=== PATIENT | male | born 1990 | race Caucasian/White ===

== ENCOUNTER 2020-12-04 20:22 | Emergency (ER) | payer MEDICAID ==
[~2020-12-04] VITALS: Ht 182.9 cm; Wt 72.7 kg
[~2020-12-04 20:22] MED LIST: LORA0.5T PO; MAGN-64 PO; OMEP-84 PO
[2020-12-04 20:59] LABS: BASOPHILS # (AUTO) 0.1 X10'3 (0-0.2); BASOPHILS % (AUTO) 0.8 % (0-1); EOSINOPHILS # (AUTO) 0.1 X10'3 (0-0.9); EOSINOPHILS % (AUTO) 1.7 % (0-6); HEMATOCRIT 41.7 % (42.0-52.0); HEMOGLOBIN 13.9 g/dl (14.0-17.9); LYMPHOCYTES # (AUTO) 2.1 X10'3 (1.1-4.8); LYMPHOCYTES % (AUTO) 27.2 % (21-51); MEAN CORPUSCULAR HEMOGLOBIN 28.8 PG (27.0-31.0); MEAN CORPUSCULAR HGB CONC 33.3 g/dL (33.0-36.5); MEAN CORPUSCULAR VOLUME 86.7 FL (78-98); MEAN PLATELET VOLUME 8.4 FL (7.4-10.4); MONOCYTES # (AUTO) 0.7 X10'3 (0-0.9); MONOCYTES % (AUTO) 8.4 % (2-12); NEUTROPHILS # (AUTO) 4.8 X10'3 (1.8-7.7); NEUTROPHILS % (AUTO) 61.9 % (42-75); PLATELET COUNT 215 X10'3 (140-440); RED BLOOD COUNT 4.81 X10'6 (4.70-6.10); RED CELL DISTRIBUTION WIDTH 13.4 % (11.5-14.5); WHITE BLOOD COUNT 7.8 X10'3 (4.5-11.0)
[2020-12-04 21:07] LABS: ALANINE AMINOTRANSFERASE 27 U/L (12-78); ALBUMIN 3.8 G/DL (3.4-5.0); ALBUMIN/GLOBULIN RATIO 1.3 (1.1-1.5); ALKALINE PHOSPHATASE 76 IU/L (46-116); ANION GAP 8 (8-16); ASPARTATE AMINO TRANSFERASE 19 U/L (10-37); BILIRUBIN,TOTAL 0.2 MG/DL (0.1-1.0); BLOOD UREA NITROGEN 9 MG/DL (7-18); BUN/CREATININE RATIO 11.3 (5.4-32.0); CALCIUM 8.4 MG/DL (8.5-10.1); CHLORIDE 101 MMOL/L (99-107); GLUCOSE 106 MG/DL (70-104); SODIUM 135 MMOL/L (135-145); TOTAL CARBON DIOXIDE 25.9 MMOL/L (24-32); TOTAL PROTEIN 6.7 G/DL (6.4-8.2); eGFR > 90 ML/MIN
[2020-12-04 21:36] VITALS: BP 123/73
== END 2020-12-04 21:54 | disposition home or self-care (01) ==
LOC: ER 20:23
DX: R55 Syncope and collapse (principal); R11.2 Nausea with vomiting, unspecified; R19.7 Diarrhea, unspecified; R42 Dizziness and giddiness; K21.9 Gastro-esophageal reflux disease without esophagitis; G89.29 Other chronic pain; F41.9 Anxiety disorder, unspecified; F32.9 Major depressive disorder, single episode, unspecified; F20.9 Schizophrenia, unspecified; F12.90 Cannabis use, unspecified, uncomplicated; Z79.899 Other long term (current) drug therapy
CPT/HCPCS: 36415; 80053; 85025; 93005; 99284

== ENCOUNTER 2021-03-07 11:35 | Emergency (ER) | payer MEDICAID ==
[~2021-03-07] VITALS: Ht 182.9 cm; Wt 65.6 kg
[2021-03-07 11:47] VITALS: BP 118/62
[2021-03-07] MEDS ORDERED: diphenhydrAMINE 25mg capsule PO ONE (14:10)
[2021-03-07] MEDS ORDERED: triamcinolone acetonide 40mg/ml inj IM ONE (14:30)
== END 2021-03-07 14:53 | disposition home or self-care (01) ==
LOC: ER 11:36
DX: L50.9 Urticaria, unspecified (principal); T78.40XA Allergy, unspecified, initial encounter; K21.9 Gastro-esophageal reflux disease without esophagitis; G89.29 Other chronic pain; F41.9 Anxiety disorder, unspecified; F32.9 Major depressive disorder, single episode, unspecified; F20.9 Schizophrenia, unspecified; F12.90 Cannabis use, unspecified, uncomplicated; Z79.899 Other long term (current) drug therapy; X58.XXXA Exposure to other specified factors, initial encounter
CPT/HCPCS: 99282; Q0163

== ENCOUNTER 2021-03-13 13:32 | Emergency (ER) | payer MEDICAID ==
[~2021-03-13] VITALS: Ht 182.9 cm; Wt 65.0 kg
[2021-03-13 14:24] LABS: BASOPHILS % (AUTO) 0.4 % (0-1); EOSINOPHILS % (AUTO) 0.2 % (0-6); HEMOGLOBIN 15.5 g/dl (14.0-17.9); LYMPHOCYTES # (AUTO) 1.9 X10'3 (1.1-4.8); LYMPHOCYTES % (AUTO) 26.8 % (21-51); MEAN CORPUSCULAR HEMOGLOBIN 29.5 PG (27.0-31.0); MEAN CORPUSCULAR HGB CONC 33.7 g/dL (33.0-36.5); MEAN CORPUSCULAR VOLUME 87.6 FL (78-98); MEAN PLATELET VOLUME 8.9 FL (7.4-10.4); MONOCYTES # (AUTO) 0.5 X10'3 (0-0.9); MONOCYTES % (AUTO) 7.6 % (2-12); NEUTROPHILS # (AUTO) 4.5 X10'3 (1.8-7.7); PLATELET COUNT 197 X10'3 (140-440); RED BLOOD COUNT 5.25 X10'6 (4.70-6.10); RED CELL DISTRIBUTION WIDTH 13.8 % (11.5-14.5)
[2021-03-13 14:32] LABS: ALANINE AMINOTRANSFERASE 23 U/L (12-78); ALBUMIN 4.4 G/DL (3.4-5.0); ALBUMIN/GLOBULIN RATIO 1.3 (1.1-1.5); ALKALINE PHOSPHATASE 68 IU/L (46-116); ANION GAP 8 (8-16); ASPARTATE AMINO TRANSFERASE 19 U/L (10-37); BILIRUBIN,TOTAL 0.3 MG/DL (0.1-1.0); BLOOD UREA NITROGEN 7 MG/DL (7-18); BUN/CREATININE RATIO 8.3 (5.4-32.0); CALCIUM 9.1 MG/DL (8.5-10.1); CHLORIDE 104 MMOL/L (99-107); CREATININE 0.84 MG/DL (0.60-1.10); GLUCOSE 98 MG/DL (70-104); POTASSIUM 4.2 MMOL/L (3.5-5.1); SODIUM 141 MMOL/L (135-145); TOTAL CARBON DIOXIDE 29.3 MMOL/L (24-32); TOTAL PROTEIN 7.7 G/DL (6.4-8.2); eGFR > 90 ML/MIN
[2021-03-13 15:07] VITALS: BP 112/76
== END 2021-03-13 16:06 | disposition home or self-care (01) ==
LOC: ER 13:33
DX: R07.89 Other chest pain (principal); K21.9 Gastro-esophageal reflux disease without esophagitis; F31.9 Bipolar disorder, unspecified; F20.9 Schizophrenia, unspecified; G89.29 Other chronic pain; M54.9 Dorsalgia, unspecified; F17.210 Nicotine dependence, cigarettes, uncomplicated; F12.10 Cannabis abuse, uncomplicated; Z91.018 Allergy to other foods; Z79.899 Other long term (current) drug therapy
CPT/HCPCS: 36415; 71045; 80053; 83880; 84484; 85025; 93005; 99285

== ENCOUNTER 2021-03-16 13:30 | Emergency (ER) | payer MEDICAID ==
[~2021-03-16] VITALS: Ht 182.9 cm; Wt 72.0 kg
[2021-03-16 13:57] VITALS: BP 120/78
== END 2021-03-16 18:42 | disposition left against medical advice (07) ==
LOC: ER 13:31
DX: M79.675 Pain in left toe(s) (principal); Z53.21 Procedure and treatment not carried out due to patient leaving prior to being seen by health care provider

== ENCOUNTER 2021-04-01 13:26 | Emergency (ER) | payer MEDICAID ==
[~2021-04-01] VITALS: Ht 182.9 cm; Wt 70.0 kg
[2021-04-01 13:56] VITALS: BP 134/75
== END 2021-04-01 16:50 | disposition left against medical advice (07) ==
LOC: ER 13:28
DX: H53.9 Unspecified visual disturbance (principal); Z53.21 Procedure and treatment not carried out due to patient leaving prior to being seen by health care provider

== ENCOUNTER 2021-04-07 10:36 | Emergency (ER) | payer MEDICAID | END 2021-04-07 11:08 | disposition left against medical advice (07) | LOC: ER 10:37 | DX: L03.039 Cellulitis of unspecified toe (principal); Z53.21 Procedure and treatment not carried out due to patient leaving prior to being seen by health care provider ==

== ENCOUNTER 2021-04-24 10:57 | Emergency (ER) | payer MEDICAID ==
[~2021-04-24] VITALS: Ht 185.4 cm; Wt 75.0 kg
[2021-04-24 11:06] VITALS: BP 123/73
== END 2021-04-24 11:17 | disposition home or self-care (01) ==
LOC: ER 11:00
DX: T16.1XXA Foreign body in right ear, initial encounter (principal); K21.9 Gastro-esophageal reflux disease without esophagitis; G89.29 Other chronic pain; F41.9 Anxiety disorder, unspecified; F32.9 Major depressive disorder, single episode, unspecified; F20.9 Schizophrenia, unspecified; F12.90 Cannabis use, unspecified, uncomplicated; Z79.899 Other long term (current) drug therapy; X58.XXXA Exposure to other specified factors, initial encounter; Y93.89 Activity, other specified; Y92.89 Other specified places as the place of occurrence of the external cause; Y99.8 Other external cause status
CPT/HCPCS: 99284

== ENCOUNTER 2021-05-10 11:27 | Emergency (ER) | payer MEDICAID ==
[~2021-05-10] VITALS: Ht 182.9 cm; Wt 66.0 kg
[2021-05-10 13:53] LABS: BASOPHILS % (AUTO) 0.6 % (0-1); EOSINOPHILS # (AUTO) 0.1 X10'3 (0-0.9); EOSINOPHILS % (AUTO) 0.8 % (0-6); HEMATOCRIT 42.1 % (42.0-52.0); HEMOGLOBIN 14.4 g/dl (14.0-17.9); LYMPHOCYTES # (AUTO) 1.6 X10'3 (1.1-4.8); MEAN CORPUSCULAR HEMOGLOBIN 29.9 PG (27.0-31.0); MEAN CORPUSCULAR HGB CONC 34.1 g/dL (33.0-36.5); MEAN CORPUSCULAR VOLUME 87.6 FL (78-98); MEAN PLATELET VOLUME 8.4 FL (7.4-10.4); MONOCYTES # (AUTO) 0.5 X10'3 (0-0.9); MONOCYTES % (AUTO) 8.7 % (2-12); NEUTROPHILS % (AUTO) 63.9 % (42-75); PLATELET COUNT 185 X10'3 (140-440); RED BLOOD COUNT 4.81 X10'6 (4.70-6.10); RED CELL DISTRIBUTION WIDTH 13.2 % (11.5-14.5); WHITE BLOOD COUNT 6.2 X10'3 (4.5-11.0)
[2021-05-10 14:00] LABS: ALANINE AMINOTRANSFERASE 26 U/L (12-78); ALBUMIN 3.8 G/DL (3.4-5.0); ALBUMIN/GLOBULIN RATIO 1.4 (1.1-1.5); ALKALINE PHOSPHATASE 68 IU/L (46-116); ANION GAP 11 (8-16); ASPARTATE AMINO TRANSFERASE 20 U/L (10-37); BILIRUBIN,TOTAL 0.4 MG/DL (0.1-1.0); BLOOD UREA NITROGEN 7 MG/DL (7-18); BUN/CREATININE RATIO 10.6 (5.4-32.0); CALCIUM 8.4 MG/DL (8.5-10.1); CHLORIDE 93 MMOL/L (99-107); CREATININE 0.66 MG/DL (0.60-1.10); GLUCOSE 92 MG/DL (70-104); POTASSIUM 3.7 MMOL/L (3.5-5.1); SODIUM 128 MMOL/L (135-145); TOTAL CARBON DIOXIDE 24.5 MMOL/L (24-32); TOTAL PROTEIN 6.5 G/DL (6.4-8.2); eGFR > 90 ML/MIN
[2021-05-10 14:09] LABS: ETHANOL < 0.010 GM/DL (0.0-0.010)
[2021-05-10 14:19] LABS: URINE AMPHETAMINE SCREEN NEGATIVE (Neg); URINE BARBITUATE SCREEN NEGATIVE (Neg); URINE BENZODIAZEPINES SCREEN NEGATIVE (Neg); URINE CANNABINOID SCREEN NEGATIVE (Neg); URINE COCAINE SCREEN NEGATIVE (Neg); URINE METHADONE SCREEN NEGATIVE (Neg); URINE OPIATE SCREEN NEGATIVE (Neg); URINE PHENCYCLIDINE SCREEN NEGATIVE (Neg)
[2021-05-10 14:30] LABS: COLOR,URINE STRAW (Yellow); UA COLLECTION TYPE CLN CATCH MIDSTREAM
[2021-05-10 14:31] LABS: CLARITY,URINE CLEAR (Clear); GLUCOSE, URINE NEGATIVE (Neg); KETONES,URINE NEGATIVE (Neg); LEUKOCYTE ESTERASE ,URINE NEGATIVE (Neg); NITRITES, URINE NEGATIVE (Neg); OCCULT BLOOD,URINE NEGATIVE (Neg); PROTEIN,URINE NEGATIVE (Neg); UROBILINOGEN,URINE 0.2 E.U/dL (0.2-1.0)
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
--- NOTE | 2021-05-10 18:07 | NUR ---
pt continues to sleep. plan is to let him sleep until dinner, give him dinner and send him in a taxi back to [facility]
[2021-05-10 18:31] VITALS: BP 108/77
== END 2021-05-10 18:34 | disposition home or self-care (01) ==
LOC: ER 11:28
DX: R45.851 Suicidal ideations (principal); Z20.822 Contact with and (suspected) exposure to COVID-19; F20.9 Schizophrenia, unspecified; G89.29 Other chronic pain; K21.9 Gastro-esophageal reflux disease without esophagitis; F41.9 Anxiety disorder, unspecified; F32.9 Major depressive disorder, single episode, unspecified; F12.90 Cannabis use, unspecified, uncomplicated; Z79.899 Other long term (current) drug therapy
CPT/HCPCS: 36415; 80053; 80305; 80320; 81003; 84443; 85025; 87635; 99285; C9803

== ENCOUNTER 2021-05-20 13:05 | Emergency (ER) | payer MEDICAID ==
[~2021-05-20] VITALS: Ht 182.9 cm; Wt 63.0 kg
[2021-05-20 13:10] VITALS: BP 125/68
== END 2021-05-20 13:35 | disposition home or self-care (01) ==
LOC: ER 13:05
DX: H61.21 Impacted cerumen, right ear (principal); R62.50 Unspecified lack of expected normal physiological development in childhood; K21.9 Gastro-esophageal reflux disease without esophagitis; G89.29 Other chronic pain; F17.200 Nicotine dependence, unspecified, uncomplicated; F12.90 Cannabis use, unspecified, uncomplicated; Z79.899 Other long term (current) drug therapy; Z91.014 Allergy to mammalian meats
CPT/HCPCS: 69210; 99284

== ENCOUNTER 2022-01-12 17:19 | Emergency (ER) | payer MEDICAID ==
[~2022-01-12] VITALS: Ht 177.8 cm; Wt 61.4 kg
[2022-01-12 17:39] VITALS: BP 127/53
== END 2022-01-12 18:39 | disposition home or self-care (01) ==
LOC: ER 17:20
DX: S09.90XA Unspecified injury of head, initial encounter (principal); G89.29 Other chronic pain; M54.9 Dorsalgia, unspecified; F41.9 Anxiety disorder, unspecified; F32.A Depression, unspecified; K21.9 Gastro-esophageal reflux disease without esophagitis; F12.10 Cannabis abuse, uncomplicated; Y04.8XXA Assault by other bodily force, initial encounter; Y93.89 Activity, other specified; Y92.89 Other specified places as the place of occurrence of the external cause; Y99.8 Other external cause status
CPT/HCPCS: 99281

== ENCOUNTER 2022-03-15 16:02 | Emergency (ER) | payer MEDICAID ==
[~2022-03-15] VITALS: Ht 177.8 cm; Wt 79.5 kg
[2022-03-15 16:18] VITALS: BP 109/64
[2022-03-15] MEDS ORDERED: IBUP-1984 PO (16:33)
[2022-03-15] MEDS ORDERED: AMOX-117 PO (16:33)
== END 2022-03-15 16:51 | disposition home or self-care (01) ==
LOC: ER 16:03
DX: K08.89 Other specified disorders of teeth and supporting structures (principal); K21.9 Gastro-esophageal reflux disease without esophagitis; G89.29 Other chronic pain; M54.50 Low back pain, unspecified; F12.90 Cannabis use, unspecified, uncomplicated; Z91.018 Allergy to other foods; Z59.00 Homelessness unspecified
CPT/HCPCS: 99283

== ENCOUNTER 2022-03-19 19:36 | Emergency (ER) | payer MEDICAID ==
[~2022-03-19] VITALS: Ht 177.8 cm; Wt 61.4 kg
[~2022-03-19 19:36] MED LIST changes: +AMOX-117 PO; +IBUP-1984 PO
[2022-03-19 19:55] VITALS: BP 141/63
== END 2022-03-19 22:15 | disposition home or self-care (01) ==
LOC: ER 19:37
DX: M54.2 Cervicalgia (principal); R22.1 Localized swelling, mass and lump, neck; K21.9 Gastro-esophageal reflux disease without esophagitis; G89.29 Other chronic pain; F12.90 Cannabis use, unspecified, uncomplicated; Z59.00 Homelessness unspecified; Z79.2 Long term (current) use of antibiotics; Z79.899 Other long term (current) drug therapy; Z91.018 Allergy to other foods
CPT/HCPCS: 72040; 99283

== ENCOUNTER 2022-07-14 19:13 | Emergency (ER) | payer MEDICAID ==
[~2022-07-14] VITALS: Ht 177.8 cm; Wt 72.7 kg
[~2022-07-14 19:13] MED LIST changes: -AMOX-117 PO; -IBUP-1984 PO
[2022-07-14 19:35] VITALS: BP 139/72
== END 2022-07-15 04:56 | disposition left against medical advice (07) ==
LOC: ER 19:14
DX: M54.9 Dorsalgia, unspecified (principal); M54.2 Cervicalgia; Z53.21 Procedure and treatment not carried out due to patient leaving prior to being seen by health care provider

== ENCOUNTER 2022-11-11 12:16 | Emergency (ER) | payer MEDICAID ==
[~2022-11-11] VITALS: Ht 177.8 cm; Wt 98.0 kg
[~2022-11-11 12:16] MED LIST changes: +CETI10TA15 PO
[2022-11-11 12:59] VITALS: BP 104/74
--- NOTE | 2022-11-11 13:31 | NUR ---
charge nurse aware of general assessment needed.
== END 2022-11-11 14:20 | disposition home or self-care (01) ==
LOC: ER 12:17
DX: Z00.00 Encounter for general adult medical examination without abnormal findings (principal); M25.571 Pain in right ankle and joints of right foot; R07.81 Pleurodynia; K21.9 Gastro-esophageal reflux disease without esophagitis; F17.200 Nicotine dependence, unspecified, uncomplicated; F12.90 Cannabis use, unspecified, uncomplicated; Z91.018 Allergy to other foods; Z59.00 Homelessness unspecified
CPT/HCPCS: 71045; 99283

== ENCOUNTER 2023-11-28 19:51 | Emergency (ER) | payer MEDICAID ==
[~2023-11-28] VITALS: Ht 180.3 cm; Wt 70.1 kg
[~2023-11-28 19:51] MED LIST changes: +NEOM10SO7 LEFT EAR
[2023-11-28 20:05] VITALS: BP 131/79; PULSE 100; RESP 16; O2SAT 97
[2023-11-28] MEDS ORDERED: Cipro HC otic suspension 10ML bottle RIGHT EAR SCH (20:55)
[2023-11-28 21:22] VITALS: TEMP 98.2
== END 2023-11-28 21:23 | disposition home or self-care (01) ==
LOC: ER 19:51
DX: H60.91 Unspecified otitis externa, right ear (principal); K21.9 Gastro-esophageal reflux disease without esophagitis; F12.90 Cannabis use, unspecified, uncomplicated; Z91.018 Allergy to other foods; Z79.899 Other long term (current) drug therapy
CPT/HCPCS: 99282; J7030

== ENCOUNTER 2024-04-04 16:47 | Emergency (ER) | payer MEDICAID ==
[~2024-04-04] VITALS: Ht 180.3 cm; Wt 151.2 kg
[2024-04-04 17:30] VITALS: BP 118/85; PULSE 86; RESP 16; TEMP 98.6; O2SAT 98
[2024-04-04] MEDS ORDERED: AMOX-580 PO (17:57)
== END 2024-04-04 18:07 | disposition home or self-care (01) ==
LOC: ER 16:48
DX: H66.92 Otitis media, unspecified, left ear (principal); K21.9 Gastro-esophageal reflux disease without esophagitis; G89.29 Other chronic pain; M54.9 Dorsalgia, unspecified; F41.9 Anxiety disorder, unspecified; F32.A Depression, unspecified; F12.90 Cannabis use, unspecified, uncomplicated; Z91.018 Allergy to other foods; Z79.2 Long term (current) use of antibiotics; Z79.899 Other long term (current) drug therapy
CPT/HCPCS: 99283